=== PATIENT | female | born 1945 | race Caucasian/White ===

== ENCOUNTER 2021-06-13 21:04 | Inpatient (IN) | payer MEDICARE, OTHER ==
[~2021-06-13] VITALS: Ht 162.6 cm; Wt 81.5 kg
[2021-06-14] MEDS ORDERED: AMLODIPINE BESYL5 MG PO (08:04)
[2021-06-14] MEDS ORDERED: OXYCODONE HCL10 MG PO (08:09)
[2021-06-14] MEDS ORDERED: HYDROXYCHLOROQ200 MG PO (08:10)
[2021-06-14] MEDS ORDERED: LOVASTATIN20 MG PO (08:12)
[2021-06-14] MEDS ORDERED: NOVOLOG FL100 UNIT/1 SUB-Q (08:13)
[2021-06-14] MEDS ORDERED: OMEPRAZOLE40 MG PO (08:14)
[2021-06-14] MEDS ORDERED: GABAPENTIN300 MG PO (08:14)
[2021-06-14] MEDS ORDERED: ALENDRONATE SOD70 MG PO (08:14)
[2021-06-14] MEDS ORDERED: LOSARTAN POTASS50 MG PO (08:19)
[2021-06-14] MEDS ORDERED: PREDNISONE5 MG PO (08:20)
--- NOTE | 2021-06-14 18:52 | EKG ---
[facility] [address] [facility] [facility] [place], [place] [address] Signed Atrial flutter with variable AV block Abnormal ECG No previous ECGs available Confirmed by VISHAL FORD MD ([id number] on 06/14/2021 6:52:27 PM Electronically Signed By: VISHAL FORD MD 06/14/211851 PATIENT NAME: SELAM PARSONS Electrocardiogram DATE OF : 43 PHYSICIAN: VISHAL FORD MD REPORT #: [id number] REPORT IS CONFIDENTIAL AND NOT TO BE RELEASED WITHOUT AUTHORIZATION
[2021-06-16] MEDS ORDERED: LEVOFLOXACIN750 MG PO (13:47)
[2021-06-16] MEDS ORDERED: METOPROLOL SUCC50 MG PO (13:47)
[2021-06-16] MEDS ORDERED: LO-DOSE ASPIRIN81 MG PO (13:48)
[2021-06-16] MEDS ORDERED: LOVASTATIN20 MG PO (13:50)
== END 2021-06-16 15:25 | disposition home or self-care (01) | DRG 178 ==
LOC: CCU 21:04 → MS 06-14 00:52 → CCU 06-14 00:53 → MS 06-15 13:24
PROVIDERS: ADMIT Internal Medicine; ATTEND Internal Medicine
DX: J15.6 Pneumonia due to other Gram-negative bacteria (principal); I48.92 Unspecified atrial flutter; C64.9 Malignant neoplasm of unspecified kidney, except renal pelvis; F11.20 Opioid dependence, uncomplicated; I48.0 Paroxysmal atrial fibrillation; I10 Essential (primary) hypertension; E11.65 Type 2 diabetes mellitus with hyperglycemia; E11.42 Type 2 diabetes mellitus with diabetic polyneuropathy; E78.5 Hyperlipidemia, unspecified; K21.9 Gastro-esophageal reflux disease without esophagitis; G89.4 Chronic pain syndrome; M25.552 Pain in left hip; M25.551 Pain in right hip; M06.9 Rheumatoid arthritis, unspecified; M54.50 Low back pain, unspecified; Z79.4 Long term (current) use of insulin; Z79.82 Long term (current) use of aspirin; Z79.899 Other long term (current) drug therapy
CPT/HCPCS: 36415; 73522; 80048; 83036; 83735; 83880; 85025; 93005; 93010; 93306; 94667; 97161; 97166; 97530; J1650; J1815; J1956; J2543; J3475; J7121